=== PATIENT | female | born 1945 | race Caucasian/White ===

== ENCOUNTER → 2021-08-30 | Outpatient (CLI) | payer MEDICARE ==
[2021-08-31 03:15] LABS: T4, Free (Free Thyroxine) 1.67 ng/dL (0.800-1.800)
== END | disposition home or self-care (01) ==
LOC: LABWHC1 14:01
PROVIDERS: ATTEND Internal Medicine Interventional Cardiology
DX: E05.90 Thyrotoxicosis, unspecified without thyrotoxic crisis or storm (principal)
CPT/HCPCS: 36415; 84439; 84443

== ENCOUNTER → 2021-12-03 | Outpatient (CLI) | payer MEDICARE ==
[2021-12-03 22:49] LABS: HGB 11.1 g/dL (12.0-15.0); MCH 26.3 pg (27.0-32.0); MCV 87.7 fL (80.0-97.0); Mean Platelet Volume 10.6 fL (9.5-12.2); NRBC Per 100 WBC 0 /100 WBCS (0.0-0.0); Platelet Count 329 X 10*3/uL (140-440); RBC 4.22 X 10*6/uL (4.10-5.20); RDW 15.5 % (11.5-14.5); WBC 7.51 X 10*3/uL (4.50-10.00)
[2021-12-04 00:59] LABS: African American GFR (CKD) 69.3 (60.0-200.0); Anion Gap 11.5 mmol/L (10.00-18.00); Carbon Dioxide 27.3 mmol/L (20.0-27.5); Non-African American GFR(CKD) 59.8 (60.0-200.0); Potassium 4.1 mmol/L (3.5-5.5)
== END | disposition home or self-care (01) ==
LOC: LABPAT 15:07
PROVIDERS: ATTEND Internal Medicine Clinical Cardiac Electrophysiology
DX: Z01.812 Encounter for preprocedural laboratory examination (principal); I48.0 Paroxysmal atrial fibrillation
CPT/HCPCS: 80051; 82565; 84520; 85027

== ENCOUNTER 2021-12-18 06:35 | Day surgery (SDC) | payer MEDICARE ==
[2021-12-14 10:44] VITALS: BMI 28.8
[~2021-12-18 06:35] MED LIST: HYDROmorphone 0.5 MG/0.5 ML SYRINGE IVP PRN; LACTATED RINGERS 1,000 ML IV SCH; SODIUM CHLORIDE 0.9% 1,000 ML IV SCH
[2021-12-18] MEDS ORDERED: SODIUM CHLORIDE 0.9% 1,000 ML IV ONE (06:47)
[2021-12-18 07:11] LABS: INR 2.5 (<1.2); Prothrombin Time 25.2 sec (9.0-12.0)
[2021-12-18] MEDS ORDERED: fentaNYL (PF) 50 MCG/ML 2 ML AMP ONE (08:59)
[2021-12-18] MEDS ORDERED: SUCCINYLCHOLINE CHLORIDE 200 MG/10 ML VIAL IV ONE (08:59)
[2021-12-18] MEDS ORDERED: ePHEDrine 50 MG/ML 1 ML VIAL ONE (08:59)
[2021-12-18] MEDS ORDERED: PROPOFOL 10 MG/ML 20 ML VIAL IV ONE (08:59)
[2021-12-18] MEDS ORDERED: HEPARIN SODIUM,PORCINE 10,000 UNIT/ML 1 ML VIAL ONE (08:59)
[2021-12-18] MEDS ORDERED: PHENYLEPHRINE-0.9% NACL SYG 1,000 MCG/10 ML SYRINGE ONE (08:59)
[2021-12-18] MEDS ORDERED: ISOPROTERENOL 250 MCG/1.25 ML SYR IV ONE (08:59)
[2021-12-18] MEDS ORDERED: WATER FOR INJECTION, STERILE 10 ML VIAL IV ONE (08:59)
[2021-12-18] MEDS ORDERED: LIDOCAINE 2% INJ 20 MG/ML (2 ML VIAL) ONE (08:59)
[2021-12-18] MEDS ORDERED: MIDAZOLAM 2 MG/2 ML VIAL ONE (08:59)
[2021-12-18] MEDS ORDERED: HEPARIN SOD,PORK IN 0.45% NACL 25,000 UNIT in 0.45% NACL 1 250ML.BAG IV ONE (09:23)
[2021-12-18] MEDS ORDERED: LIDOCAINE 1% INJ 10MG/ML (30 ML VIAL-PF) SQ ONE (09:45)
[2021-12-18] MEDS ORDERED: IOPAMIDOL-370 50ML BTL INJ ONE (11:20)
[2021-12-18] MEDS ORDERED: ACETAMINOPHEN TAB 325 MG TAB PO PRN (11:49)
[2021-12-18] MEDS ORDERED: ACETAMINOPHEN IV (For NPO) 1,000 MG in EMPTY BAG 1 BAG IVPB ONE (11:49)
--- NOTE | 2021-12-18 12:00 | P.HPCAR ---
History of Present Illness This is Dr. Ramon dictating an H/P on this patient The patient was interviewed and examined IMPRESSION / ASSESSMENT: Paroxysmal atrial fibrillation, very symptomatic and intolerant of flecainide and Multaq Hypertension PLAN: A. fib ablation and continue Coumadin HPI Patient continues to have episodes of palpitations in atrial fibrillation She is quite symptomatic and feels weak and dizzy during these episodes History of syncope No fever chills cough expectoration no orthopnea PND no chest pain recently ROS: No fever chills or rigors, no cough, phlegm or expectoration, no nausea, vomiting or diarrhea, no hematuria, dysuria, no musculoskeletal complaints, no strokes or seizures, no skin lesions. EXAMINATION: Afebrile 98.7F pulse rate in the 50s and 60s but pressure 140/73 mmHg Head and neck examination is normal No JVD Normal heart sounds no murmurs or gallops Lungs are clear no rhonchi no crackles Abdomen is soft Extremities warm no edema REVIEW OF LABS, ECG & MEDICAL DATA INR is 2.5 on Coumadin Physical Exam Vitals: Vital Signs Temp Pulse Resp BP Pulse Ox 12/18/21 06:59 98.7 F 56 L 16 140/73 98 Intake and Output 12/17/21 12/18/21 12/18/21 22:59 06:59 14:59 Intake Total 422 Balance 422 Intake: IV 422 Other: Weight 86.8 kg Past Medical History Past Medical History: Atrial Fibrillation, Cancer, Hypertension, Thyroid Disorder Additional Past Medical History / Comment(s): See Dr Ramon H&P,colon CA-no radiation or chemo approx 15 yrs ago History of Any Multi-Drug Resistant Organisms: None Reported Past Surgical History: Bowel Resection, Joint Replacement Additional Past Surgical History / Comment(s): partial parathyroidectomy,lt knee replacement Past Anesthesia/Blood Transfusion Reactions: No Reported Reaction Smoking Status: Former smoker - Past Family History Mother Family Medical History: CVA/TIA Physical Examination Vital Signs Temp Pulse Resp BP Pulse Ox 12/18/21 06:59 98.7 F 56 L 16 140/73 98 Intake and Output 12/17/21 12/18/21 12/18/21 22:59 06:59 14:59 Intake Total 422 Balance 422 Intake: IV 422 Other: Weight 86.8 kg Results Coagulation 12/18/21 Range/Units 06:40 PT 25.2 H (9.0-12.0) sec Current Medications Generic Name Dose Route Start Last Admin Trade Name Tadq PRN Reason Stop Dose Admin Acetaminophen 650 mg 12/18/21 11:49 Acetaminophen Tab 325 Mg Tab PO 01/17/22 11:50 Q6HR PRN Mild Pain (Scale 1 to 3) Amlodipine Besylate 2.5 mg 12/19/21 09:00 Amlodipine 2.5 Mg Tab PO 01/18/22 09:01 DAILY [facility] Atorvastatin Calcium 10 mg 12/19/21 09:00 Atorvastatin 10 Mg Tab PO 01/18/22 09:01 DAILY [facility] Lisinopril/HCTZ 1 each 12/19/21 09:00 Lisinopril-Hctz 10-12.5 Mg 1 Each Tab PO 01/18/22 09:01 DAILY [facility] Hydromorphone HCl 0.5 mg 12/18/21 06:03 Hydromorphone 0.5 Mg/0.5 Ml Syringe IVP 12/18/21 23:00 Q5M PRN Phase 1 or 2 - Pain Control Acetaminophen 1,000 mg/ IV 100 mls @ 400 mls/hr 12/18/21 11:49 Solution IVPB 12/18/21 12:03 ONCE ONE Levothyroxine Sodium 100 mcg 12/19/21 09:00 Levothyroxine 100 Mcg Tab PO 01/18/22 09:01 QAM [facility] Non-Formulary Medication 50 mg 12/18/21 21:00 Metoprolol Tartrate [Lopressor] PO 01/17/22 21:01 BID [facility] Sodium Chloride 12 ml 12/18/21 11:49 Sodium Chloride 0.9% Flush 10 Ml Syringe IV 01/17/22 11:50 Q12HR PRN Line Flush Warfarin Sodium 2.5 mg 12/19/21 11:54 Warfarin 2.5 Mg Tab PO 01/18/22 11:55 SUMOWEFRSA [facility] Protocol Warfarin Sodium 5 mg 12/18/21 12:00 Warfarin 5 Mg Tab PO 01/17/22 12:01 TUTH [facility] Protocol Intake and Output 12/17/21 12/18/21 12/18/21 22:59 06:59 14:59 Intake Total 422 Balance 422 Intake: IV 422 Other: Weight 86.8 kg
--- NOTE | 2021-12-18 12:02 | P.PRLE ---
RE: Mica Anton Dear Soraya Mrs. Anton underwent an A. fib ablation The right superior and left superior pulmonary veins appear to be arrhythmogenic She underwent successful cryoablation of all 4 pulmonary veins and ablation of left atrial septum She will continue with the anticoagulation and antihypertensive medications and will follow-up with you and Dr. Lira as before Thank you for entrusting me with the care of the patient Warm regards Sincerely Ramírez Ramon
--- NOTE | 2021-12-18 12:08 | P.EPPROC ---
- EP Procedure Note Electrophysiology Procedure Note: PROCEDURE A. fib ablation/PVI/left atrial septal ablation DIAGNOSIS Paroxysmal Atrial fibrillation, symptomatic, refractory to therapy RESULT No left atrial appendage mass seen on intracardiac echo Dilated left atrium with elevated pressures Arrhythmogenic Right superior and left superior pulmonary veins Common left-sided veins Large right superior pulmonary vein Successful A. fib ablation/pulmonary vein isolation of all veins using cryo- ablation Complete entrance block in all 4 veins confirmed No evidence for phrenic nerve injury Left atrial septal ablation Esophageal deflection YES PROCEDURE DETAILS Patient was brought to the EP lab in a fasting state after obtaining written informed consent. Procedure performed under general anesthesia Esophagus was intubated. Esophageal temperature monitoring with circa catheter. Esophageal deflection with an endoscope to avoid hypothermia of the esophagus. After initial muscle relaxant use, muscle relaxants were not given thereafter in order to assess phrenic nerve during procedure. Patient prepped and draped as per protocol Cryo ablation-set up with standard preparation of the cryoablation tools done. Femoral Venous access obtained on the right and left groins and sheaths placed Diagnostic catheters for the high right atrium, phrenic nerve stimulation and pacing, His bundle, coronary sinus placed Intracardiac echo catheter placed. Long sheath placed in the right atrium Left and right transseptal catheterization performed under intracardiac echo guidance. Intravenous heparin with aCT above 300 Later, catheter positioning and balloon positioning in the left atrium and pulmonary veins, under intracardiac echo guidance Diagnostic EP study with coronary sinus pacing and recording Baseline measurements: Sinus cycle length 1158 ms, WV interval 170 ms, QRS 106 ms and QT interval 496 ms Sinus recovery times at 600, 504 100 ms were 1968, 1893 and 02/25/2007 milliseconds Corresponding corrected sinus node recovery times were prolonged AV node Wenckebach block 380 ms Burst stimulation from the coronary sinus from 400 ms down to 300 ms on Isuprel did not induce any atrial fibrillation after successful cryoablation and septal ablation Transseptal catheterization performed RA pressure 13/8/10 LA pressure 32/7/19 Transseptal catheterization performed with standard sheath. The cryoablation sheath was then placed with an over the wire exchange without any acute complications. The cryoablation balloon was placed in the office of each pulmonary vein and all 4 pulmonary veins were isolated. IV dye was injected to confirm occlusion. Goal: achieve complete occlusion of the pulmonary vein, achieve -30 degrees C at 30 seconds and achieve -40 degrees C at 60 seconds and a time to effect of less than 60 seconds. If not, the balloon was repositioned to obtain this result After completion of Cryoblation with durations from 180-240 seconds, entrance block was confirmed with the Attain circular catheter in a roving fashion around the antrum of the pulmonary veins Phrenic nerve pacing was performed from the SVC, right innominate vein area and diaphragm voltage was monitored. Diaphragmatic contractions were also monitored manually for strength of contraction. At the end of the procedure the Achieve catheter was once again used to check for entrance block Phrenic nerve stimulation was performed to confirm diaphragmatic stimulation the end of the procedure Ablation of the left atrial septum was performed and electrical isolation of the area was confirmed with mapping Ablation was also performed a separate lesion in the mariya of the left-sided veins Cine fluoroscopy was performed at the very end of the procedure to confirm movement of both diaphragms with inspiration and expiration At the end of the procedure the patient was extubated Venous sheaths were removed and hemostasis assured with a closure device PROCEDURES PERFORMED Diagnostic EP study CS pacing and recording Left and right transseptal catheterization Catheter the mapping of the tachycardia Intracardiac echocardiography Pulmonary vein isolation with transseptal and comprehensive EPS, [id number] Drug infusion, +[id number] Linear ablation, left atrium, +[id number]
[2021-12-18] MEDS ORDERED: hydrALAZINE HCL 20 MG/ML 1 ML VIAL IVP ONE (12:35)
[2021-12-18] MEDS ORDERED: WARFARIN 5 MG TAB PO SCH (18:00)
[2021-12-18] MEDS: METOPROLOL TARTRATE 50 MG TAB PO SCH (20:52)
[2021-12-19 05:43] LABS: INR 3.1 (<1.2); Prothrombin Time 31.1 sec (9.0-12.0)
[2021-12-19] MEDS ORDERED: LEVOTHYROXINE 100 MCG TAB PO SCH (06:30)
[2021-12-19 06:31] VITALS: BP 165/77; PULSE 71; RESP 18; TEMP 98.2
--- NOTE | 2021-12-19 07:51 | P.DS ---
Providers Attending physician: Ramírez Ramon Primary care physician: Soraya Araujo [facility] Course: Patient is resting comfortably in bed She ambulate around the room and into the bathroom No dizziness lightheadedness chest discomfort She has a mild sore throat Groins of healed well line minimal discomfort No hematoma On examination pulse rate in the 60s and 70s Blood pressure 125/71 mmHg Heart sounds are normal no rub no gallop Sounds are clear no rhonchi no crackles Impression Paroxysmal atrial fibrillation Sick Sinus Syndrome with prolonged sinus node recovery times Plan Discharge home today Continue and granulation Follow-up with Dr. Lira Plan - Discharge Summary Discharge Rx Participant: Yes New Discharge Prescriptions: No Action RX: amLODIPine BESYLATE 2.5 mg PO DAILY Metoprolol Tartrate [Lopressor] 50 mg PO BID Warfarin [Coumadin] 2.5 mg PO SUMOWEFRSA Warfarin [Coumadin] 5 mg PO TUTH Atorvastatin [Lipitor] 10 mg PO DAILY Lisinopril-Hctz 10-12.5 mg [Zestoretic 10-12.5] 1 tab PO DAILY RX: Levothyroxine Sodium 100 mcg PO QAM Discharge Medication List Atorvastatin [Lipitor] 10 mg PO DAILY 12/14/21 [History] Lisinopril-Hctz 10-12.5 mg [Zestoretic 10-12.5] 1 tab PO DAILY 12/14/21 [History] Metoprolol Tartrate [Lopressor] 50 mg PO BID 12/14/21 [History] RX: Levothyroxine Sodium 100 mcg PO QAM 12/14/21 [History] RX: amLODIPine BESYLATE 2.5 mg PO DAILY 12/14/21 [History] Warfarin [Coumadin] 2.5 mg PO SUMOWEFRSA 12/14/21 [History] Warfarin [Coumadin] 5 mg PO TUTH 12/14/21 [History]
[2021-12-19] MEDS: METOPROLOL TARTRATE 50 MG TAB PO SCH (08:51)
[2021-12-19] MEDS ORDERED: ATORVASTATIN 10 MG TAB PO SCH (09:00)
[2021-12-19] MEDS ORDERED: LISINOPRIL-HCTZ 10-12.5 MG 1 EACH TAB PO SCH (09:00)
[2021-12-19] MEDS ORDERED: amLODIPine 2.5 MG TAB PO SCH (09:00)
[2021-12-19] MEDS ORDERED: WARFARIN 2.5 MG TAB PO SCH (18:00)
== END 2021-12-19 10:15 | disposition home or self-care (01) ==
LOC: CATHEP 06:35 → 6NMEDSUR 11:47 → CATHEP 12-19 10:15
PROVIDERS: ATTEND Internal Medicine Clinical Cardiac Electrophysiology
DX: I48.0 Paroxysmal atrial fibrillation (principal); I10 Essential (primary) hypertension; I49.5 Sick sinus syndrome; Z79.01 Long term (current) use of anticoagulants; Z85.038 Personal history of other malignant neoplasm of large intestine; Z87.891 Personal history of nicotine dependence
CPT/HCPCS: 93623; 93656; 93657; 85610 ×2; C1894; C1769 ×4; C1760; C1730 ×2; C1759; C1893; C1733; C1766; J2250; J0330; J0360; J1644 ×2; J2001 ×2; J3010; J2370; J2704; Q9967

== ENCOUNTER → 2023-03-18 | Outpatient (CLI) | payer MEDICARE ==
[2023-03-18 17:55] LABS: ALT 16 U/L (8-44); AST 18 U/L (13-35); Albumin 4.2 g/dL (3.8-4.9); Albumin/Globulin Ratio 1.17 Ratio (1.60-3.17); Alkaline Phosphatase 110 U/L (41-126); BUN/Creat Ratio 15.78 Ratio (12.00-20.00); Blood Urea Nitrogen 14.2 mg/dL (9.0-27.0); Calcium 9.3 mg/dL (8.7-10.3); Carbon Dioxide 28.3 mmol/L (21.6-31.8); Chloride 101 mmol/L (96-109); Globulin 3.6 g/dL (1.6-3.3); Glucose 105 mg/dL (70-110); Potassium 3.7 mmol/L (3.5-5.5); Sodium 142 mmol/L (135-145); T4, Free (Free Thyroxine) 1.73 ng/dL (0.80-1.80); Total Bilirubin 0.6 mg/dL (0.3-1.2); Total Protein 7.8 g/dL (6.2-8.2)
== END | disposition home or self-care (01) ==
LOC: LABWHC1 10:43
PROVIDERS: ATTEND Internal Medicine Interventional Cardiology
DX: I10 Essential (primary) hypertension (principal); I48.0 Paroxysmal atrial fibrillation; I34.0 Nonrheumatic mitral (valve) insufficiency; E78.2 Mixed hyperlipidemia
CPT/HCPCS: 36415; 80053; 84439; 84443